=== PATIENT | female | born 1995 | race Caucasian/White ===

== ENCOUNTER 2024-05-05 23:20 | Inpatient (IN) | payer SELFPAY, OTHER ==
[2024-05-05 23:29] VITALS: BP 127/91; PULSE 116; RESP 16; TEMP 36.7; O2SAT 99
--- NOTE | 2024-05-05 23:34 | PCM.HP.OB ---
HPI - General General Date of Admission: 05/05/24 HPI Narrative JUWAN WONG, is a 28 F who presents from home with players assistant. She has been laboring at home for over 24 hours. Her water broke this morning. Per her players assistant the baby is breech. Maternal Data Information Final JUANITO: 05/05/24 Gestational age: 40 weeks PFSH PFSH Medical History no medical history no medical history Allergy/AdvReac Type Severity Reaction Status Date / Time No Known Allergies Allergy Verified 05/05/24 23:33 Family History no significant family his no significant family history Surgical History no surgical history no surgical history NST FHR Rate Baby A Baseline: 175 Variability:: Moderate Decelerations:: Variable FHR Category:: Category II Uterine Activity:: not tracing well Vital Signs Vital Signs Vital Signs: 05/05/24 23:29 05/05/24 23:29 05/05/24 23:29 Pulse Rate 116 H Blood Pressure 127/91 H BP Systolic 127 BP Diastolic 91 Pulse Ox 99 Physical Exam Const alert and oriented x3 Chest inspection of chest normal GI soft to palpation, non-tender and non-distended Inspection: gravid external exam normal Narrative: cvx - C/C/-1, breech Extremity normal to inspection Labs Labs Labs: Antibody Screen Pending Hct 34.0 % (37-47) L Hgb 12.0 g/dL (12.0-15.0) Syphilis Total Ab Pending Rubella IgG Antibody Pending Hep Bs Antigen Pending Hepatitis C Antibody Pending HIV 1&2 Antibody Pending Assessment & Plan (1) 40 weeks gestation of : COMMENT: @ 40 weeks (2) Breech presentation: QUALIFIERS: Fetus number: single or unspecified fetus Qualified Code(s): O32.1XX0 - Maternal care for breech presentation, not applicable or unspecified PLAN: Plan Admit to L&D MOD - recommend proceeding with section. Informed consent obtained and patient agrees to proceed.
[2024-05-05] MEDS: Lactated Ringers 1,000 ML 999 ML IV (23:35)
--- NOTE | 2024-05-05 23:42 | OP.PCM_ITS ---
Maternal Data Information Final JUANITO: 05/05/24 Gestational age: 40&1 weeks Details Operative Information Date of Procedure: 05/05/24 Pre-Operative Diagnosis: (1) Breech presentation Post-Operative Diagnosis: Same Indications for : Malpresentation and Nonreassuring Status Indications Narrative: The patient was taken to the operating room where spinal anesthesia was placed & found to be adequate. She was prepped and draped in the dorsal supine position with a leftward tilt. A Pfannenstiel skin incision was made approximately 2 cm above the symphysis pubis and carried through to the underlying fascia with the scalpel. The fascia was incised incised in the midline and extended laterally with the Lopez scissors. The rectus muscles were in the midline and the peritoneum was entered carefully and bluntly. The peritoneal incision was stretched and the bladder blade was inserted. Vesicouterine peritoneum was tented up, incised & then bladder flap created gently. The uterine incision was made in a low transverse fashion with the scalpel and extended superiorly and inferiorly with blunt dissection. The infant's buttocks were elevated to the uterine incision. The infant was then delivered carefully using typical breech maneuvers. The 3VC cord was clamped and cut. The infant was handed off to the waiting pediatric cardiologist. The placenta was delivered with fundal massage and gentle traction in the standard fashion. The uterus was exteriorized and cleared of clots and debris. The uterine incision was closed with #1 Vicryl suture in a running locked fashion. Monocryl suture was used in an imbricating fashion. The incision was examined and was found to be hemostatic. The uterus was returned to the abdominal cavity. After irrigating [place] was placed over the uterine incision as some areas were denuded (but hemostatic). The rectus muscle was examined and any bleeding was Bovie cauterized. The fascia was closed with PDS suture in a running standard fashion. The subcutaneous tissue was examining and any bleeding was Bovie cauterized. The subcutaneous tissue was reapproximated with interrupted sutures. The skin was closed in a subcuticular fashion by the MERCURY PURIFIER while I was present in the labor & delivery unit. The remainder of the procedure was performed by me with assistance. All sponge, lap, and needle counts were correct. The patient was taken to her room for recovery in a stable condition. Classification: COURTNEY Procedure Type: low transverse bias cutting machine operator vertical #1: Fallon Orantes Type of Anesthesia: Spinal Antibiotic Given: Ancef 2 grams IV x1 and Zithromax 500 mg/5 mL X1 Drain: Quintana to straight drain Estimated Blood Loss: 750ml Fluids Replaced: 1200 Procedure Start Time: 00:05 Procedure Stop Time: 00:31 Findings Description of Procedure: Normal maternal uterus and adnexa Presentation: Positive for Diony Breech Amniotic Membrane Rupture Type: Spontaneous Amniotic Fluid Description: Thick meconium Placenta Disposition: [facility] Cord Vessel Description: 3 Vessels Cord Entanglement: None Cord Gases: ABG and VBG Infant A Gender: Female (1 minute): 2 (5 minute): 6 (8 at 10 minutes) Delayed Cord Clamping: No Complications Complications: None
[2024-05-05 23:48] LABS: Absolute Lymphocyte Count 1.29 X10^3/uL (0.83-4.51); Absolute Neutrophil Count 24.1 X10^3/uL (2.0-7.7); Basophil# 0.05 X10^3/uL; Basophil% 0.2 % (0-1); Eosinophil# 0.03 X10^3/uL; Eosinophils% 0.1 % (0-5); Lymphocyte # 1.29 X10^3/ul (0.83-4.51); Lymphocyte % 4.6 % (19-41); Mean Corp Hgb Conc 35.3 g/dL (32-36); Mean Corpuscular Hgb 32.1 pg (27.0-32.0); Mean Corpuscular Volume 90.9 fL (81-99); Mean Platelet Vol. 9.6 fl (6.2-12.0); Monocyte# 2.11 X10^3/uL; Monocyte% 7.6 % (0-10); NRBC Flagged by Analyzer 0 % (0-5); Neutrophil # 24.09 X10^3/uL (2.7-7.7); Neutrophil % 86.3 % (47-70); POSITIVE DIFFERENTIAL YES; Platelet Count 271 K/mm3 (150-450); RBC Distribution Width CV 12.7 % (11.6-14.6); RBC Distribution Width SD 41.9 fl (35.1-43.9); Red Blood Count 3.74 M/mm3 (4.2-5.4); White Blood Count 27.9 K/mm3 (4.4-11.0)
[2024-05-05 23:50] LABS: Differential Indicated SCAN CRITERIA MET
[2024-05-05] MEDS: Cefazolin 2 GM in 0.9% Normal Saline (100mL Bag) 100 ML IV (23:55)
[2024-05-06] VITALS (24 sets, daily range): BP systolic 77–127; BP diastolic 38–91; PULSE 77–108; RESP 16–19; TEMP 36.2–37.1; O2SAT 97–99; BMI 31.1
[2024-05-06] MEDS: Azithromycin 500 MG in Dextrose 5%-Water (250mL Bag) 250 ML 250 MG IV (00:43)
[2024-05-06] MEDS: Oxytocin 15 Units/NS 250ml 15 UNITS/250 ML IV.SOLN 83 UNITS IV (01:00)
[2024-05-06 01:14] LABS: Differential Comment SCANNED
[2024-05-06] MEDS: LACTATED RINGERS 500 ML 999 ML IV (01:51)
[2024-05-06] MEDS: Ketorolac 30 MG/ML Syringe IV ×4 (01:55→20:00)
[2024-05-06] MEDS: 0.9% Saline Lock 10 ML Syringe IV ×2 (01:55→20:00)
[2024-05-06] MEDS: Acetaminophen 500 MG Tablet 1000 MG PO ×4 (01:55→20:00)
[2024-05-06 03:05] LABS: HIV - WCH Non-Reactive (Nonreactive); Hepatitis B Surface Antigen Non-Reactive (Nonreactive); Hepatitis C Antibody Non-Reactive (Nonreactive); Rubella IgG Reactive (Nonreactive); Syphilis Antibodies Non-reactive
[2024-05-06] MEDS: Lactated Ringers 1,000 ML 100 ML IV (04:05)
--- NOTE | 2024-05-06 09:13 | NURSING ---
This RN and Alma Urbano RN discussed with patient risk of not administering Rhogam . Patient verbalized understanding and states My severity of illness coordinator will give it to me tomorrow when I go home. Jorge Blackmon notified of patient decision.
[2024-05-06] MEDS: Senna/Docusate Sodium 1 Tablet PO (09:31)
[2024-05-06 09:59] LABS: Hematocrit 30.1 % (37-47); Hemoglobin 10.4 g/dL (12.0-15.0); Mean Corp Hgb Conc 34.6 g/dL (32-36); Mean Corpuscular Hgb 32.3 pg (27.0-32.0); Mean Corpuscular Volume 93.5 fL (81-99); Mean Platelet Vol. 9.9 fl (6.2-12.0); Platelet Count 248 K/mm3 (150-450); RBC Distribution Width CV 12.9 % (11.6-14.6); RBC Distribution Width SD 44.3 fl (35.1-43.9); Red Blood Count 3.22 M/mm3 (4.2-5.4); White Blood Count 18.6 K/mm3 (4.4-11.0)
[2024-05-06 16:22] LABS: Pathologist Review Reviewed
[2024-05-07] MEDS: Ibuprofen 600 MG Tablet PO ×2 (02:36→09:21)
[2024-05-07] MEDS: Acetaminophen 500 MG Tablet 1000 MG PO ×2 (02:36→09:21)
[2024-05-07 02:39] VITALS: BP 95/52; PULSE 86; RESP 16; TEMP 36.6; O2SAT 98
--- NOTE | 2024-05-07 08:15 | PCM.PN.OB ---
Subjective Subjective Feeling good. Pain controlled. Moderate lochia. Ambulating without difficulty. Breast feeding. Objective Data Objective Data Vital Signs: Vital Signs Temp Pulse Resp BP Pulse Ox O2 Del Method 97.9 F 86 16 95/52 L 98 Room Air 05/07/24 02:39 05/07/24 02:39 05/07/24 02:39 05/07/24 02:39 05/07/24 02:39 05/07/24 02:39 Oxygen Delivery Method Room Air Weight: 74.843 kg Body Mass Index (BMI) 31.1 Intake & Output: Intake and Output for Last 24 Hours 05/05/24 05/06/24 05/07/24 23:59 23:59 23:59 Intake Total 2506.67 / 2506.67 Output Total 4650 / 4650 Balance -2143.33 / -2143.33 Lab / Micro Data 05/06/24 09:43 Labs: Laboratory Results - last 24 hr 05/05/24 23:35: Diff Path Review Reviewed 05/06/24 09:43: WBC 18.6 H, RBC 3.22 L, Hgb 10.4 L, Hct 30.1 L, MCV 93.5, MCH 32.3 H, MCHC 34.6, RDW Std Deviation 44.3 H, RDW Coeff of Saskia 12.9, Plt Count 248, MPV 9.9 ROS Constitutional Constitutional: Denies headache(s) Eyes Eyes: Denies change in vision Cardiovascular Cardiovascular: Denies chest pain or fatigue Respiratory/Chest Respiratory/Chest: Denies cough or dyspnea Gastrointestinal Gastrointestinal: Denies constipation or diarrhea Genitourinary Genitourinary: Denies change in urinary stream Neurologic Neurologic: Denies systems reviewed and no addt'l complaints, except as documented Psychiatric Psychiatric: Denies systems reviewed and no addt'l complaints, except as documented Physical Exam Const alert General Appearance: cooperative GI GI Narrative: soft, moderate distention, fundus firm, appropriately tender. Abdominal bandage clean dry and intact Assessment & Plan (1) Breech presentation: QUALIFIERS: Fetus number: single or unspecified fetus Qualified Code(s): O32.1XX0 - Maternal care for breech presentation, not applicable or unspecified (2) Delivery by section: PLAN: Plan discharge home
--- NOTE | 2024-05-07 08:26 | PCM.DC.SUM ---
Providers Date of Admission: 05/05/24 Date of Discharge: 05/07/24 Reason For Visit: PRIMARY C SECTION Diagnosis Discharge Diagnosis (1) Breech presentation: Status: Acute Code(s): O32.1XX0 - Maternal care for breech presentation, not applicable or unspecified Qualifiers: Fetus number: single or unspecified fetus Qualified Code(s): O32.1XX0 - Maternal care for breech presentation, not applicable or unspecified (2) Delivery by section: Status: Acute Plan discharge home Medications at Discharge Home Medications acetaminophen 500 mg tablet 1,000 mg (2 x 500 mg) PO Q6H #30 tabs 05/07/24 ibuprofen 600 mg tablet 600 mg PO Q6H #30 tabs 05/07/24 Hospital Course Operations section Procedures None Summary of Care Provided Minutes Spent on Discharge: 20 Hospital Course: Presented in active labor with ROM and breech presentation. Delivered by primary . Breast feeding at discharge Physical Exam Const alert General Appearance: cooperative GI GI Narrative: soft, moderate distention, fundus firm, appropriately tender. Abdominal bandage clean dry and intact Weight / BMI Weight Weight: 74.843 kg Body Mass Index (BMI) 31.1 ABG / Lab / Microbiology Data 05/06/24 09:43 Laboratory: Laboratory Results - last 24 hr 05/05/24 23:35: Diff Path Review Reviewed 05/06/24 09:43: WBC 18.6 H, RBC 3.22 L, Hgb 10.4 L, Hct 30.1 L, MCV 93.5, MCH 32.3 H, MCHC 34.6, RDW Std Deviation 44.3 H, RDW Coeff of [place] 12.9, Plt Count 248, MPV 9.9 D/C Instructions Discharge Diet: No restrictions May resume sexual activity in: 4-6 weeks Lifting Restrictions: 20 pounds Additional Activity Instructions: Nothing in the vagina for 4-6 weeks. You may return to work/school in 6 weeks. Call your doctor if your incision/area has: Continuous Slow Oozing, Sudden Increased Bleeding, Increased Pain/ Swelling, Increased Redness and Foul Smelling Discharge Call your doctor if you observe: Fever of 101 or Higher and Using more than 1 pad per hour (for 2 hours) Suture Line Care: Avoid Pulling/Pushing and Avoid Pinching/Bending Cleanse incision/area with: Keep Dressing Clean & Dry Please Follow Up With: Vero Whatley MD When: Call to make an appointment for an incision check in 1-2 [phone]. You will need a post check in 6 weeks. Meaningful Use Info Meaningful Use Meaningful Use Diagnoses (Choose all that apply): None applicable Ischemic Stroke Statin Dosing Therapy Reference: STATIN DOSE THERAPY REFERENCE: * Patients > 75 years receive moderate or high dose statin therapy. * Patients 75 years or YOUNGER should receive HIGH intensity statin dose unless contraindicated. You will be required to document reason for non-treatment if statin daily dose does not meet guidelines. HIGH DOSE STATIN THERAPY DAILY Atorvastatin > than or = to 40 mg Rosuvastatin > than or = to 20 mg Amlodipine + Atorvastatin > than or = to 2.5/40 mg Ezetimibe + Simvastatin 10/80 mg Simvastatin 80mg Discharge Plan Admission Admit Date/Time: 05/05/24 23:20 Primary Reason for Your Visit: breech presentation Attending Provider: Shani Conner Discharge Orders/Prescriptions Prescriptions: New acetaminophen 500 mg Tablet 1,000 mg PO Q6H Qty: 30 0RF ibuprofen 600 mg Tablet 600 mg PO Q6H Qty: 30 0RF Referrals / Follow Up: Shani Conner MD [Med Staff - Active Staff] - Disposition Disposition (needs filled in before D/C Order can be placed): Home, Self Care
[2024-05-07 09:03] VITALS: BP 101/66; PULSE 80; RESP 17; TEMP 36.5; O2SAT 98
[2024-05-07] MEDS: Senna/Docusate Sodium 1 Tablet PO (10:48)
[2024-05-07] MEDS: Rho(D) Immune Globulin 300 MCG (1500 Unit) Syringe IV (12:26)
[2024-05-07 12:34] VITALS: BP 94/52; PULSE 84; RESP 117; TEMP 36.6; O2SAT 97
[2024-05-09 12:21] LABS: Kleihauer-Betke POSITIVE
== END 2024-05-07 14:55 | disposition home or self-care (01) | DRG 788 ==
PROVIDERS: Admitting Provider Obstetrics & Gynecology; Visit Provider Obstetrics & Gynecology
DX: O32.1XX0 Maternal care for breech presentation, not applicable or unspecified (principal); O48.0 Post-term pregnancy; Z3A.40 40 weeks gestation of pregnancy; Z37.0 Single live birth; O77.0 Labor and delivery complicated by meconium in amniotic fluid; O76 Abnormality in fetal heart rate and rhythm complicating labor and delivery
CPT/HCPCS: 59025; 59050; 85025; 85027; 85460; 85461; 86703; 86762; 86780; 86803; 86850; 86900; 86901; 87340; 90384; 99221; J7120; A4216; G0378; J2790; J2791